=== PATIENT | female | born 1950 | race Caucasian/White ===

== ENCOUNTER → 2023-07-20 13:32 | Outpatient (REF) | payer OTHER, SELFPAY | LOC: WDC 13:32 | PROVIDERS: ATTENDING PHYSICIAN Physician Assistant Medical | DX: Z12.31 Encounter for screening mammogram for malignant neoplasm of breast (principal) | CPT/HCPCS: 77063; 77067 ==

== ENCOUNTER → 2023-08-19 07:13 | Outpatient (REF) | payer OTHER, SELFPAY | LOC: HWRAD 07:13 | PROVIDERS: ATTENDING PHYSICIAN Physician Assistant Medical | DX: R10.11 Right upper quadrant pain (principal) | CPT/HCPCS: 76700 ==

== ENCOUNTER → 2023-11-05 08:36 | Outpatient (REF) | payer OTHER, SELFPAY | LOC: WDC 08:36 | PROVIDERS: ATTENDING PHYSICIAN Physician Assistant Medical | DX: R92.30 Dense breasts, unspecified (principal) | CPT/HCPCS: 76641 ==

== ENCOUNTER 2023-12-20 15:28 | Emergency (ER) | payer OTHER, SELFPAY ==
[2023-12-20 15:30] VITALS: BP 170/91
--- NOTE | 2023-12-20 17:24 | ED.GENMED ---
History of Present Illness
General
Chief Complaint: Skin Surface Trauma
Source: patient
Exam Limitations: none
Time Seen by Provider: 12/20/23 16:24
Nursing documentation reviewed up to this point in time: agreed with
History of Present Illness
History of Present Illness:
Patient is a 73-year-old female who presents to the emergency department with a laceration under her left thigh as well as the left eyelid after being struck with a tree saw accidentally. Patient denies any loss of consciousness, nausea or
vomiting, ataxia, focal weakness, visual or speech changes. Patient's tetanus is not up-to-date. Patient actually states she feels pretty good.
Past History
Past History
ED Past Medical History: Cancer (Skin)
ED Past Surgical History: None
Social History
Tobacco: Non-smoker
Review of Systems
Review of Systems
All Other Systems: Not applicable
Phy Exam
Physical Exam
Physical Exam:
Physical Exam
General: No apparent distress, alert and appropriate, well nourished, well hydrated
HENT: Normocephalic with a superficial 1 cm laceration of the upper lid and as well as a 1.5 cm laceration in the left infraorbital region, no bony tenderness of the left orbit or deformity, supple
Eyes: Clear sclera, conjuctiva without injection, extraocular muscles intact, visual georges intact
Neuro: Alert and oriented x 3, CN II - XII intact, no motor focality, no cerebellar dysfunction
Skin: Lacerations as stated above
Psychiatric: well kept. interactive and cooperative
Extremities: No edema, cyanosis
Course
Orders/Labs/Results
Orders:
Orders
12/20/23 16:49
Tetanus/Diphth/Acelpertussis [Adacel] 0.5 ml IM .ONCE ONE
Vital Signs
Initial and Last Documented VS:
Initial Vital Signs
Pulse Resp BP Pulse Ox
76 16 170/91 97
12/20/23 15:30 12/20/23 15:30 12/20/23 15:30 12/20/23 15:30
Last Documented Vital Signs
Pulse Resp BP Pulse Ox
76 16 170/91 97
12/20/23 15:30 12/20/23 15:30 12/20/23 15:30 12/20/23 15:30
Procedures
Laceration Closure
Left Upper Eye lid:
Status of Wound: clean
Size of Wound in cm: 1
Description of Wound Edges: ragged
Preparation: cleaned with Betadine
Anesthesia: 1% Lidocaine with epi
Revision/Debridement: minor revision
Wound exploration: explored to base- no FB
Type of Closure: single layer closure and running stitch
Skin Closure Material: 6-0 prolene
Number of sutures: 3
Left Lower Eye lid:
Status of Wound: clean
Size of Wound in cm: 1.5
Description of Wound Edges: ragged
Preparation: cleaned with Betadine
Anesthesia: 1% Lidocaine with epi
Revision/Debridement: minor revision
Wound exploration: explored to base- no FB
Type of Closure: single layer closure and running stitch
Skin Closure Material: 6-0 prolene
Number of sutures: 6
*Critical Care Note
Total Time (30-74mins, 75-104mins- exclusive of procedures): Not Applicable
ED Attending Note
-
Portions of this chart may have been created with voice recognition software.� Occasional wrong word or��sound alike� substitutions may have occurred due to the inherent limitations of voice recognition software.
Discharge Plan
Departure
Patient Disposition: Home (Routine Discharge)
Date of Disposition: 12/20/23
Time of Disposition: 17:29
Patient with high blood pressure during this ER visit?: Yes
Condition: Good
Covid-19: Not Applicable
Discharge Problem:
Laceration, eyelid, left
Instructions: Laceration Repair With Stitches (DC), BLOOD PRESSURE
Prescriptions:
No Action
No Current Medications
0
Activity Restrictions/Additional Instructions:
Keep the area clean with soap and water. Tylenol 650 mg every 6 hours for pain. Cold compresses/ice to the area for 20 to 30 minutes 4-5 times a day. Sutures come out in 5 days. You may shower and keep the area clean with soap and water. Use
bacitracin/double antibiotic ointment
Interventions
Interventions:
*ED COVID-19 Vaccine History Last Done: 12/20/23 15:30
Discharge Date and Time
Print Language: TRISTANIAN
[2023-12-20] MEDS: ADACEL 0.5 ML IM (17:44)
[2023-12-20 17:47] VITALS: BP 160/85
== END 2023-12-20 17:55 | disposition home or self-care (01) ==
LOC: EMR 15:28
PROVIDERS: EMERGENCY PHYSICIAN Emergency Medicine; FAMILY PHYSICIAN Physician Assistant Medical
DX: S01.112A Laceration without foreign body of left eyelid and periocular area, initial encounter (principal); W27.0XXA Contact with workbench tool, initial encounter; Z23 Encounter for immunization
CPT/HCPCS: 12011; 90471; 99282; 90715

== ENCOUNTER → 2024-07-20 12:51 | Outpatient (REF) | payer OTHER, SELFPAY | LOC: WDC 12:51 | PROVIDERS: ATTENDING PHYSICIAN Physician Assistant Medical | DX: Z12.31 Encounter for screening mammogram for malignant neoplasm of breast (principal) | CPT/HCPCS: 77063; 77067 ==

== ENCOUNTER 2024-10-17 06:21 | Day surgery (SDC) | payer OTHER, SELFPAY | END 2024-10-17 11:46 | disposition home or self-care (01) | LOC: GI 06:21 | PROVIDERS: ATTENDING PHYSICIAN Specialist | DX: Z12.11 Encounter for screening for malignant neoplasm of colon (principal); K57.30 Diverticulosis of large intestine without perforation or abscess without bleeding | CPT/HCPCS: G0121 ==